=== PATIENT | male | born 1955 | race Caucasian/White ===

== ENCOUNTER 2021-02-13 08:05 | Day surgery (SDC) | payer BC ==
[2021-02-12 10:01] VITALS: BMI 23.1
[2021-02-13] MEDS ORDERED: PROPOFOL 20 ML ONE (09:09)
[2021-02-13 09:54] VITALS: BP 105/57; PULSE 70; TEMP 98.2
== END 2021-02-13 10:10 | disposition home or self-care (01) ==
LOC: FASU-ENDO 08:05
PROVIDERS: ATTEND Internal Medicine Gastroenterology
PROC: 0DJD8ZZ Inspection of Lower Intestinal Tract, Via Natural or Artificial Opening Endoscopic (ICD-10-PCS; principal; 2021-02-13 09:12)
DX: Z12.11 Encounter for screening for malignant neoplasm of colon (principal); K57.30 Diverticulosis of large intestine without perforation or abscess without bleeding